=== PATIENT | female | born 1970 | race Hispanic/Latino ===

== ENCOUNTER 2016-03-09 07:51 | Outpatient (CLI) | payer OTHER ==
[2016-03-09] MEDS ORDERED: FLUSH HEPARIN IV ONE ×2 (08:40→08:55)
--- NOTE | 2016-03-09 11:05 | Nuclear Medicine Report ---
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 TECHNIQUE: First-pass technique following injection of 22 mCi of technetium 99m labeled red blood cells. FINDINGS: Heart rate measures 61 beats per minute. No obvious cardiac wall motion abnormality on the planar images. The cardiac ejection fraction measures 83%. IMPRESSION: Cardiac ejection fraction measures 83%.
== END 2016-03-09 07:52 | disposition home or self-care (01) ==
LOC: NM 07:51
PROVIDERS: ATTEND Internal Medicine Cardiovascular Disease
DX: I25.810 Atherosclerosis of coronary artery bypass graft(s) without angina pectoris (principal); I42.9 Cardiomyopathy, unspecified
CPT/HCPCS: 78472; A9560; J1642